=== PATIENT | female | born 1995 | race Caucasian/White ===

== ENCOUNTER 2019-06-15 16:14 | Emergency (ER) | payer SELFPAY | END 2019-06-15 18:20 | disposition home or self-care (01) | LOC: ERS 16:14 | DX: J06.9 Acute upper respiratory infection, unspecified (principal); F41.9 Anxiety disorder, unspecified | CPT/HCPCS: 87804; 99283 ==

== ENCOUNTER 2019-06-16 10:06 | Emergency (ER) | payer BC, SELFPAY ==
[2019-06-16 10:46] LABS: Bilirubin Negative (Negative); Blood, Urine 2+ (Negative); Clarity Clear (Clear); Glucose, Urine (Dipstick) Normal (Negative); Leukocyte 25 Leu/uL (Negative); Nitrite Negative (Negative); Protein, Urine (Dipstick) 10 mg/dL (Neg-Trace); Urobilinogen Normal mg/dL (Less than 2); WBC/HPF 0-3 HPF (0-3)
[2019-06-16 10:47] LABS: Bacteria/HPF 1+ HPF (None Seen); Pregnancy Test - Urine (BHCG) Negative (Negative); Pregu Control Background? CLEAR/WHITE (CLR/WHITE); Pregu Control Bar Appear? YES (CONTROL BAR); Specific Gravity 1.015 (1.002-1.036)
[2019-06-16 11:19] LABS: #Lymphocytes 0.9 thou/uL (1.20-3.40); #Monocytes 0.3 thou/uL (0.11-0.59); #Neutrophils 6.3 thou/uL (1.40-6.50); %Basophils 0.1 % (0.0-1.0); %Eosinophils 0.1 % (0.0-10.0); %Lymphocytes 11.8 % (21.0-51.0); %Monocytes 3.9 % (0.0-10.0); %Neutrophils 84.1 % (42.0-75.0); Mean Corpuscular HGB CONC 34.8 g/dL (32.0-36.0); Mean Corpuscular Hemoglobin 31.6 pg (27.0-31.0); Mean Corpuscular Volume 90.9 fL (78.0-98.0); Mean Platelet Volume 7.4 fL (7.4-10.4); Platelet Count 199 thou/uL (130-400); RBC Distribution Width 11.5 % (11.5-14.5); Red Blood Cell (RBC) Count 4.75 mill/uL (4.20-5.40); White Blood Cell (WBC) Count 7.5 thou/uL (4.8-10.8)
[2019-06-16] MEDS ORDERED: Ketorolac Tromethamine 30 MG/ML VIAL ONE (11:23)
[2019-06-16 11:53] LABS: ALT (SGPT) 23 U/L (8-55); AST (SGOT) 29 U/L (5-34); Albumin 4.5 g/dL (3.5-5.0); Alkaline Phosphatase 73 U/L (40-110); Anion Gap 14 mmol/L (10-20); BUN (Urea Nitrogen) 5 mg/dL (7.0-18.7); Bilirubin, Total 0.8 mg/dL (0.2-1.2); Calc. Creatinine Clearance 0 mL/min (70-130); Calcium 9.5 mg/dL (7.8-10.44); Carbon Dioxide 20 mmol/L (22-29); Chloride 106 mmol/L (98-107); Estimated GFR-MDRD Greater than 90; Globulin 2.9 g/dL (2.4-3.5); Glucose 84 mg/dL (70-105); Lipase 19 U/L (8-78); Potassium 3.4 mmol/L (3.5-5.1); Protein, Total 7.4 g/dL (6.0-8.3)
--- NOTE | 2019-06-16 12:10 | CT ---
CT ABDOMEN AND PELVIS PERFORMED WITHOUT CONTRAST ENHANCEMENT: Date: 06/16/2019 HISTORY: Low back pain and diarrhea. FINDINGS: The lung bases are clear. The liver, spleen, pancreas, and gallbladder regions appear unremarkable gi mary the limitations of a noncontrast study. The right and left adrenal glands, and right and left kidneys are normal in size. No renal calculi. N o ureteral calculus or obstruction. No significant periaortic adenopathy. Some slightly prominent mes enteric lymph nodes are seen. CT of pelvis was performed without contrast enhancement. The appendix is normal. There is no adenopat hy, mass, or any significant free fluid. There is trace fluid in the cul-de-sac region. IMPRESSION: 1. Slightly prominent mesenteric lymph nodes. This could indicate an adenitis. 2. No renal or ureteral calculi. Normal appendix. POS: [facility]
[2019-06-16 12:12] LABS: Sodium 137 mmol/L (136-145)
== END 2019-06-16 13:20 | disposition home or self-care (01) ==
LOC: ERS 10:06
DX: E86.0 Dehydration (principal); L04.9 Acute lymphadenitis, unspecified; B97.89 Other viral agents as the cause of diseases classified elsewhere; R68.89 Other general symptoms and signs; F41.9 Anxiety disorder, unspecified; Z79.899 Other long term (current) drug therapy
CPT/HCPCS: 74176; 80053; 81003; 81015; 81025; 83605; 83690; 85025; 87040; 96361; 96374; J1885